=== PATIENT | male | born 1960 | race Caucasian/White ===

== ENCOUNTER 2022-10-08 05:56 | Observation (INO) | payer OTHER ==
[2022-10-03 11:49] LABS: BASOPHILS % (AUTO) 0.5 % (0.0-5.0); EOSINOPHILS % (AUTO) 1.5 % (0.0-8.0); HEMATOCRIT 41.9 % (42-54); LYMPHOCYTES % (AUTO) 10.8 % (21.0-51.0); MEAN CORPUSCULAR HEMOGLOBIN 25.3 pg (27.0-33.0); MEAN CORPUSCULAR HGB CONC 33.2 g/dL (32.0-36.0); MEAN CORPUSCULAR VOLUME 76.3 fL (79-99); MONOCYTES % (AUTO) 3.2 % (3.0-13.0); NEUTROPHILS % (AUTO) 83.7 % (40.0-77.0); PLATELET COUNT (AUTO) 226 K/uL (130-400); RED BLOOD CELL COUNT(AUTO) 5.49 MIL/uL (4.50-6.20); RED CELL DISTRIBUTION WIDTH 14.6 % (11.0-15.5); WHITE BLOOD COUNT (AUTO) 9.6 K/uL (4.8-10.8)
[2022-10-03 12:00] LABS: CREATININE 1.4 mg/dL (0.5-1.5); POTASSIUM 4.3 mmol/L (3.5-5.1)
[2022-10-03 12:10] LABS: INR 0.97 (0.85-1.15); PROTHROMBIN TIME 10.6 SEC (9.6-11.6)
[2022-10-03 12:11] LABS: PARTIAL THROMBOPLASTIN TIME 25.9 SEC (26.3-35.5)
[2022-10-07 12:23] VITALS: BP 171/85
[~2022-10-08] VITALS: Ht 190.5 cm; Wt 118.1 kg
[2022-10-08] VITALS (21 sets, daily range): BP systolic 140–181; BP diastolic 65–95
[~2022-10-08 05:56] MED LIST: ASPI-1197 PO; AZELASTINE NASAL; CARV25TA PO; EMPA25TA PO; FLUT16H EN; HYDR-4153 PO; HYDR25TA PO; LORA10TA7 PO; MELO-106 PO; METF-444 PO; ROSU40TA21 PO
[2022-10-08] MEDS ORDERED: CEFAZOLIN SODIUM 1 GM VIAL ONE (06:43)
[2022-10-08] MEDS ORDERED: LACTATED RINGERS 1000ML 0 ML IV ONE (06:43)
[2022-10-08] MEDS ORDERED: 0.9%NACL 1000ML 1,000 ML IV ONE (07:09)
[2022-10-08] MEDS ORDERED: PHARMACY COMMUNICATION MISC SCH (07:30)
[2022-10-08] MEDS ORDERED: LACTATED RINGERS 1000ML 1,000 ML IV SCH (08:00)
[2022-10-08] MEDS ORDERED: PROPOFOL 10 MG/ML 20ML VIAL IV ONE (11:03)
[2022-10-08] MEDS ORDERED: FENTANYL CITRATE PF 50 MCG/1 ML 5ML AMP IV ONE (11:04)
[2022-10-08] MEDS ORDERED: MIDAZOLAM HCL 1 MG/ML 2ML VIAL ONE (11:05)
[2022-10-08] MEDS: CEFAZOLIN SODIUM 2 GM VIAL IVPB SCH ×3 (11:20→21:10)
[2022-10-08] MEDS ORDERED: ONDANSETRON 4MG INJ IVP PRN (11:30)
[2022-10-08] MEDS ORDERED: KCL 20 MEQ ERTAB PO PRN (11:30)
[2022-10-08] MEDS ORDERED: LIDOCAINE HCL-MPF 1% 2ML VIAL IV PRN (11:30)
[2022-10-08] MEDS ORDERED: POTASSIUM CHLORIDE 20MEQ/100ML 100 ML IV PRN (11:30)
[2022-10-08] MEDS: INSULIN HUMULIN R 100 UNIT/ML 3ML SQ SCH ×3 (11:30→21:00)
[2022-10-08] MEDS ORDERED: POTASSIUM CHLORIDE 10% ELIXIR 20 MEQ/15 ML UDCUP PO PRN (11:30)
[2022-10-08] MEDS ORDERED: KETOROLAC 30MG VIAL (30MG/ML) ONE (11:33)
[2022-10-08] MEDS ORDERED: ONDANSETRON 4MG INJ ONE (11:33)
[2022-10-08] MEDS ORDERED: TRANEXAMIC ACID 1000MG/10ML IV ONE (11:42)
[2022-10-08] MEDS ORDERED: ROCURONIUM 10MG/1ML SYR 10 MG/ML ML ONE (11:52)
[2022-10-08] MEDS ORDERED: NEOSTIGMINE 5MG/5ML SYR IV ONE (12:50)
[2022-10-08] MEDS ORDERED: ATROPINE 0.4MG VIAL IJ ONE (13:17)
[2022-10-08] MEDS ORDERED: GLYCOPYRROLATE 1 MG/5 ML SYRINGE ONE (13:18)
[2022-10-08] MEDS ORDERED: HYDROMORPHONE 1 MG INJ ONE ×2 (13:38→13:52)
[2022-10-08] MEDS ORDERED: ACETAMINOPHEN 1,000 MG/100 ML VIAL IV ONE (13:51)
[2022-10-08] MEDS: ACETAMINOPHEN 1,000 MG/100 ML VIAL IV SCH ×2 (14:02→19:11)
[2022-10-08] MEDS: IBUPROFEN 800MG + NS 250ML IV SCH ×2 (16:56→22:06)
[2022-10-08] MEDS: HYDRALAZINE 25MG TABLET PO SCH ×2 (16:56→20:59)
[2022-10-08] MEDS: 0.9%NACL 1000ML 1,000 ML IV SCH ×2 (16:56→21:30)
[2022-10-08] MEDS: MORPHINE 4 MG SYG IVP PRN (20:58)
[2022-10-08] MEDS: METFORMIN HCL 500 MG TABLET PO SCH (20:58)
[2022-10-08] MEDS: ASPIRIN 81 MG EC TAB PO SCH (20:59)
[2022-10-08] MEDS: CARVEDILOL 25 MG TABLET PO SCH (20:59)
[2022-10-08] MEDS: FAMOTIDINE 20MG TAB PO SCH (20:59)
[2022-10-08] MEDS: HYDROCODONE/ACETAMINOPHEN 10/325 MG TAB PO PRN (22:06)
[2022-10-09] VITALS (7 sets, daily range): BP systolic 128–166; BP diastolic 65–92
[2022-10-09] MEDS: CEFAZOLIN SODIUM 2 GM VIAL IVPB SCH ×2 (00:08→05:00)
[2022-10-09] MEDS: MORPHINE 4 MG SYG IVP PRN ×5 (01:01→20:38)
[2022-10-09] MEDS: HYDROCODONE/ACETAMINOPHEN 10/325 MG TAB PO PRN ×2 (01:57→23:52)
[2022-10-09] MEDS: HYDROCODONE/ACETAMINOPHEN 5/325 MG TAB PO PRN ×2 (03:02→14:46)
[2022-10-09 05:29] LABS: HEMATOCRIT 37.3 % (42-54); MEAN CORPUSCULAR HEMOGLOBIN 25.4 pg (27.0-33.0); MEAN CORPUSCULAR HGB CONC 32.4 g/dL (32.0-36.0); MEAN CORPUSCULAR VOLUME 78.4 fL (79-99); RED BLOOD CELL COUNT(AUTO) 4.76 MIL/uL (4.50-6.20); RED CELL DISTRIBUTION WIDTH 14.6 % (11.0-15.5); WHITE BLOOD COUNT (AUTO) 13.9 K/uL (4.8-10.8)
[2022-10-09 05:35] LABS: CREATININE 1.1 mg/dL (0.5-1.5); POTASSIUM 4.3 mmol/L (3.5-5.1)
[2022-10-09] MEDS: INSULIN HUMULIN R 100 UNIT/ML 3ML SQ SCH ×4 (06:22→20:39)
[2022-10-09] MEDS: 0.9%NACL 1000ML 1,000 ML IV SCH (06:25)
[2022-10-09] MEDS: IBUPROFEN 800MG + NS 250ML IV SCH (06:25)
[2022-10-09] MEDS ORDERED: [UNRECOGNIZED DRUG - OTHER] IV PRN ×4 (08:00)
[2022-10-09] MEDS ORDERED: ROPIVACAINE IV PRN ×4 (08:00)
[2022-10-09] MEDS: JARDIANCE PO SCH (09:00)
[2022-10-09] MEDS: AZELASTINE NASAL SCH (09:00)
[2022-10-09] MEDS: FLUTICASONE PROPIONATE 50MCG/SPRAY 16 GM BOTTLE EN SCH (09:00)
[2022-10-09] MEDS: HYDRALAZINE 25MG TABLET PO SCH ×3 (09:59→20:40)
[2022-10-09] MEDS: FAMOTIDINE 20MG TAB PO SCH ×2 (10:00→20:36)
[2022-10-09] MEDS: CARVEDILOL 25 MG TABLET PO SCH ×2 (10:00→20:36)
[2022-10-09] MEDS: METFORMIN HCL 500 MG TABLET PO SCH ×2 (10:00→20:36)
[2022-10-09] MEDS: HYDROCHLOROTHIAZIDE 25 MG TABLET PO SCH (10:01)
[2022-10-09] MEDS: ASPIRIN 81 MG EC TAB PO SCH ×2 (10:01→20:35)
[2022-10-09] MEDS: POLYETHYLENE GLYCOL 3350 17 GM POWD.PACK PO SCH (10:03)
[2022-10-10] MEDS: CEFAZOLIN SODIUM 2 GM VIAL IVPB SCH (04:06)
[2022-10-10 04:08] VITALS: BP 146/81
[2022-10-10] MEDS: INSULIN HUMULIN R 100 UNIT/ML 3ML SQ SCH ×3 (05:37→16:09)
[2022-10-10 08:00] VITALS: BP 167/86
[2022-10-10] MEDS: AZELASTINE NASAL SCH (08:05)
[2022-10-10] MEDS: JARDIANCE PO SCH (08:06)
[2022-10-10] MEDS: HYDROCODONE/ACETAMINOPHEN 10/325 MG TAB PO PRN ×2 (08:10→13:17)
[2022-10-10] MEDS: METFORMIN HCL 500 MG TABLET PO SCH (08:11)
[2022-10-10] MEDS: HYDRALAZINE 25MG TABLET PO SCH ×2 (08:11→14:00)
[2022-10-10] MEDS: ASPIRIN 81 MG EC TAB PO SCH (08:11)
[2022-10-10] MEDS: HYDROCHLOROTHIAZIDE 25 MG TABLET PO SCH (08:11)
[2022-10-10] MEDS: FAMOTIDINE 20MG TAB PO SCH (08:11)
[2022-10-10] MEDS: POLYETHYLENE GLYCOL 3350 17 GM POWD.PACK PO SCH (08:11)
[2022-10-10] MEDS: CARVEDILOL 25 MG TABLET PO SCH (08:11)
[2022-10-10] MEDS: FLUTICASONE PROPIONATE 50MCG/SPRAY 16 GM BOTTLE EN SCH (09:00)
[2022-10-10 12:00] VITALS: BP 139/67
[2022-10-10 14:15] LABS: APPEARANCE,URINE CLEAR (CLEAR); BILIRUBIN,URINE NEGATIVE (NEGATIVE); COLOR,URINE YELLOW (YELLOW); GLUCOSE, URINE (UA) 500 mg/dL (NEGATIVE); KETONES,URINE NEGATIVE (NEGATIVE); LEUKOCYTE ESTERASE ,URINE NEGATIVE Leu/uL (NEGATIVE); NITRATE,URINE NEGATIVE (NEGATIVE); OCCULT BLOOD,URINE NEGATIVE (NEGATIVE); PH,URINE 5.5 (5.0-8.0); PROTEIN,URINE 20 mg/dL (NEGATIVE); UROBILINOGEN,URINE 0.2 mg/dL (0.2-1.0)
[2022-10-10 14:44] LABS: BACTERIA,URINE MOD /HPF (None Seen); MUCUS,URINE RARE LPF (None Seen); SQUAMOUS EPITHELIAL CELL,UR RARE /HPF (0-2)
[2022-10-10 16:00] VITALS: BP 109/58
[2022-10-11] MEDS ORDERED: BISACODYL 10 MG SUPP.RECT RC PRN (11:30)
== END 2022-10-10 18:22 | disposition home or self-care (01) ==
LOC: DAH 05:56 → DAHIP 05:57 → 4CH 14:52
PROVIDERS: ADMIT Orthopaedic Surgery; ATTEND Orthopaedic Surgery
DX: M17.12 Unilateral primary osteoarthritis, left knee (principal); Z20.822 Contact with and (suspected) exposure to COVID-19; I10 Essential (primary) hypertension; E11.9 Type 2 diabetes mellitus without complications; Z79.4 Long term (current) use of insulin; Z79.82 Long term (current) use of aspirin; Z79.899 Other long term (current) drug therapy; Z98.890 Other specified postprocedural states
CPT/HCPCS: 80048 ×2; 85025; 85610; 85730; 87426; 36415 ×2; 27447; 96376 ×2; 96365; 96366 ×2; 96375; 96367 ×2; 82948 ×11; 85027; 97161; 97039 ×4; 97116 ×4; 97530 ×2; 87088; 81001; A6260; S2900; C1776 ×4; G0378 ×49; A4663; J7030 ×2; J7120; J3010; J0690 ×3; J1170 ×2; J3490 ×2; J2710; J0461; J2250; J2704; J2405; J2270 ×6; J1885; J1741; J1815; G0168; A4649 ×3; A6255; A6254; A5120; A4215; A4223; A4222; A4221

== ENCOUNTER → 2023-03-25 | Outpatient (CLI) | payer OTHER ==
[~2023-03-25] MED LIST changes: +IOHEXOL 350 MG/ML 100ML INFUS..BTL IV ONE; +IOHEXOL-350 50ML VIAL IV ONE
== END | disposition home or self-care (01) ==
LOC: RAH 10:46
PROVIDERS: ATTEND Internal Medicine Cardiovascular Disease
DX: I71.40 Abdominal aortic aneurysm, without rupture, unspecified (principal); I25.10 Atherosclerotic heart disease of native coronary artery without angina pectoris; M47.815 Spondylosis without myelopathy or radiculopathy, thoracolumbar region; K44.9 Diaphragmatic hernia without obstruction or gangrene
CPT/HCPCS: 75635; Q9967 ×2